=== PATIENT | female | born 1935 | race Caucasian/White ===

== ENCOUNTER → 2016-05-12 | Outpatient (REF) | payer MEDICARE | LOC: LAB 14:52 | PROVIDERS: ATTEND Nurse Practitioner Family | DX: E11.9 Type 2 diabetes mellitus without complications (principal) | CPT/HCPCS: 83036 ==

== ENCOUNTER → 2016-08-10 | Outpatient (REF) | payer MEDICARE ==
[~2016-08-10] MED LIST: ASP81CT PO; CALC-84 PO; GBPN600T PO; METO-270 PO; OMEP20CA6 PO; OXYC1TAB87 PO; VITA200C5 PO
== END ==
LOC: LAB 14:58
PROVIDERS: ATTEND Nurse Practitioner Family
DX: E11.9 Type 2 diabetes mellitus without complications (principal)
CPT/HCPCS: 83036

== ENCOUNTER → 2016-08-15 | Outpatient (CLI) | payer MEDICARE ==
[2016-08-15 14:27] LABS: RBC,URINE None Seen /HPF; URINE CENTRIFUGED VOLUME 12 mL
--- NOTE | 2016-08-19 14:12 | Diagnostic Imaging Report ---
EXAMINATION: Ultrasound of the thyroid gland dated 08/15/2016. TECHNIQUE: Multiple real-time grayscale images were obtained of the thyroid in various projections. INDICATION: Sore throat. History of nodules in the thyroid. COMPARISON: 01/12/2015. FINDINGS: The right lobe of the thyroid is 4.7 x 2 x 1.9 cm. It is minimally increased in size when compared to previous imaging. The left lobe measures 2.9 x 1.2 x 3 cm. This is not significantly changed since previous. There are multiple heterogeneous nodular lesions within the thyroid diffusely. Towards the mid to superior aspect of the right lobe, there is a heterogeneous lesion measuring 1.6 cm in greatest dimension. This previously measured 1.4 cm. Within the inferior aspect of the right lobe, there are multiple new findings. There is a heterogeneous lesion measuring 2.4 x 1.8 x 1.3 cm in size. Multiple smaller adjacent nodularities are noted. Some calcifications are suspected within this area as well. Minimal areas of vascularity noted within the area. The left lobe also contains multiple lesions some of which appear to be new. Within the superior pole, there is a 1 cm heterogeneous nodule. This is stable to slightly decreased in size. There is a prominent lesion within the mid pole measuring 1.7 x 2.3 x 1.4 cm in size either new or markedly increased in size. This demonstrates internal vascularity. The remaining mid and lower pole of the left lobe is markedly heterogeneous and the lesions are difficult to measure as they are peripherally ill-defined. Most likely, this is due to multiple immediately adjacent lesions with a single heterogeneous lesion felt to be less likely but difficult to exclude. The largest measurable region within the inferior pole is 1.6 x 1.8 x 1.3 cm. IMPRESSION: 1. Markedly nodular-appearing thyroid which has worsened in appearance from previous examination. There are multiple new nodules. Several of the previously noted nodular areas have increased in size. The lesions within the mid and lower pole of the left lobe are very difficult to delineate as described above. The larger lesions are discussed above with the most vascular lesion in the mid pole changed from previous imaging. FNA of this lesion is recommended. Possible FNA of the new large lesion in the right inferior lobe may be warranted as well. If no intervention is performed, continued short-term interval follow-up or perhaps a nuclear medicine scan could be performed to evaluate for cold nodules. Dictated by: Dictated on workstation # [id number]
== END ==
LOC: RAD 13:27
PROVIDERS: ATTEND Nurse Practitioner Family
DX: E04.1 Nontoxic single thyroid nodule (principal); R30.0 Dysuria
CPT/HCPCS: 76536; 81015; 87088

== ENCOUNTER → 2016-08-26 | Outpatient (CLI) | payer MEDICARE | LOC: LAB 12:48 | PROVIDERS: ATTEND Nurse Practitioner Family | DX: E04.1 Nontoxic single thyroid nodule (principal); E05.90 Thyrotoxicosis, unspecified without thyrotoxic crisis or storm | CPT/HCPCS: 36415; 84439; 84443; 84480 ==